=== PATIENT | male | born 1970 | race Caucasian/White ===

== ENCOUNTER 2023-01-30 18:07 | Inpatient (IN) | payer OTHER, MEDICAID ==
[~2023-01-30] VITALS: Ht 175.3 cm; Wt 176.9 kg
[2023-01-30 18:28] VITALS: BP_SYST 121
--- NOTE | 2023-01-30 18:31 | NUR ---
Patient triaged and placed in waiting room. VSS and patient appears in no acute distress at this time. Accompanied by self, awaiting available bed, and MD notified of need for MSE.
[2023-01-30] MEDS ORDERED: HYDROcodone/ACETAMIN 5-325 MG TAB (NORCO/ VICODIN) PO ONE ×2 (21:00→21:15)
[2023-01-30] MEDS ORDERED: ONDANSETRON 4 MG ODT TAB PO ONE (21:15)
--- NOTE | 2023-01-30 21:15 | NUR ---
Patient taken to CT.
[2023-01-30 21:19] LABS: BASOPHILS % (AUTO) 0.7 % (0.0-2.0); EOSINOPHILS # (AUTO) 0.2 K/uL (0.0-0.4); EOSINOPHILS % (AUTO) 2.9 % (0.0-4.0); HEMATOCRIT 45.5 % (36-54); LYMPHOCYTES # (AUTO) 1.4 K/uL (1.0-5.5); LYMPHOCYTES % (AUTO) 21.2 % (20.5-51.5); MEAN CORPUSCULAR HEMOGLOBIN 31 pg (27-31); MEAN CORPUSCULAR HGB CONC 33 % (32-36); MEAN CORPUSCULAR VOLUME 95 fL (79.0-98.0); MONOCYTES # (AUTO) 0.7 K/uL (0.0-1.0); NEUTROPHILS # (AUTO) 4.3 K/uL (1.8-7.7); NEUTROPHILS % (AUTO) 65.2 % (40.0-70.0); PLATELET COUNT (AUTO) 194 K/uL (130-430); RED BLOOD CELL COUNT(AUTO) 4.78 MIL/uL (4.2-6.2); RED CELL DISTRIBUTION WIDTH 15.1 % (9.0-15.0); WHITE BLOOD COUNT (AUTO) 6.5 K/uL (4.8-10.8)
[2023-01-30 21:34] LABS: ALBUMIN 3.4 g/dL (3.4-4.8); CALCIUM 8.8 mg/dL (8.4-11.0); CREATININE 1.21 mg/dL (0.55-1.30); TOTAL BILIRUBIN 0.4 mg/dL (0.0-1.0)
[2023-01-30] MEDS ORDERED: MORPHINE 4 MG INJ. 4 MG/ML VIAL IVP ONE (21:45)
[2023-01-30] MEDS ORDERED: MUPIROCIN 2% TOPICAL OINTMENT 22 GM NS PRN (22:00)
[2023-01-30] MEDS ORDERED: MAGNESIUM SULFATE 50 ML IV PRN (22:00)
[2023-01-30] MEDS ORDERED: DOCUSATE SODIUM 100 MG CAPSULE PO PRN (22:00)
[2023-01-30] MEDS ORDERED: MORPHINE 2 MG/ML INJ. SYRINGE IVP PRN ×2 (22:00)
[2023-01-30] MEDS ORDERED: POTASSIUM CHLORIDE 20 MEQ TAB.PRT.SR PO PRN (22:00)
[2023-01-30] MEDS ORDERED: NACL 0.9% 1,000 ML IV ONE (22:00)
[2023-01-30] MEDS ORDERED: ACETAMINOPHEN 325 MG TABLET PO PRN (22:00)
[2023-01-30] MEDS ORDERED: ONDANSETRON HCL 4 MG/2 ML VIAL IVP PRN (22:00)
--- NOTE | 2023-01-30 23:15 | NUR ---
Admit bed requested Patient will be admitted to care of Dr. PARKS. Admitted to [facility] unit. Diagnosis ABDOMINAL PAIN Inpatient (Yes or No) YES Observation (Yes or No) NO Orientation concerns or request close to nursing station (Yes or No) NO Covid Status NEGATIVE On vent or bipap NO Isolation requirements NONE Needs a sitter NO From Home (Yes or if No enter name of facility) HOME Requires Dialysis (Yes or No) NO Med Rec Completed (Yes of No) YES
--- NOTE | 2023-01-30 23:19 | NUR ---
Dr. Francis at bedside talking to the patient about getting admitted.
--- NOTE | 2023-01-30 23:34 | NUR ---
Patient does not wish to proceed with medical care recommended by Dr. Lagunas. Patient given information related to possible complications, up to and including , which could occur as a result of leaving hospital at this time. Patient verbalizes understanding of risks involved leaving against medical advice. Patient has signed AMA form.
== END 2023-01-30 23:34 | disposition left against medical advice (07) | DRG 392 ==
LOC: SED 18:07 → SMU 21:58
PROVIDERS: ADMIT Family Medicine; ATTEND Family Medicine
DX: R10.9 Unspecified abdominal pain (principal); K42.9 Umbilical hernia without obstruction or gangrene; Z91.018 Allergy to other foods; Z90.49 Acquired absence of other specified parts of digestive tract; Z53.21 Procedure and treatment not carried out due to patient leaving prior to being seen by health care provider
CPT/HCPCS: 36415; 76376; 80053; 82150; 83690; 85025; 96374; 99285; J2270; Q0162

== ENCOUNTER 2024-01-14 21:53 | Emergency (ER) | payer OTHER, MEDICAID ==
[~2024-01-14] VITALS: Ht 175.3 cm; Wt 176.9 kg
[2024-01-14 21:55] VITALS: BP_SYST 140; PULSE 85; RESP 20; TEMP 98.2; O2SAT 97
[2024-01-15 00:38] LABS: BASOPHILS % (AUTO) 0.5 % (0.0-2.0); EOSINOPHILS # (AUTO) 0.2 K/uL (0.0-0.4); EOSINOPHILS % (AUTO) 3.6 % (0.0-4.0); HEMATOCRIT 45.6 % (36-54); HEMOGLOBIN 15.4 g/dL (14.0-18.0); LYMPHOCYTES # (AUTO) 1.6 K/uL (1.0-5.5); LYMPHOCYTES % (AUTO) 24.6 % (20.5-51.5); MEAN CORPUSCULAR HEMOGLOBIN 33 pg (27-31); MEAN CORPUSCULAR HGB CONC 34 % (32-36); MEAN CORPUSCULAR VOLUME 96 fL (79.0-98.0); MONOCYTES # (AUTO) 0.6 K/uL (0.0-1.0); MONOCYTES % (AUTO) 8.6 % (1.7-9.3); NEUTROPHILS # (AUTO) 4.1 K/uL (1.8-7.7); NEUTROPHILS % (AUTO) 62.7 % (40.0-70.0); PLATELET COUNT (AUTO) 177 K/uL (130-430); RED BLOOD CELL COUNT(AUTO) 4.75 MIL/uL (4.2-6.2); RED CELL DISTRIBUTION WIDTH 14.9 % (9.0-15.0); WHITE BLOOD COUNT (AUTO) 6.6 K/uL (4.8-10.8)
[2024-01-15] MEDS: MORPHINE 4 MG INJ. 4 MG/ML VIAL IVP ONE ×2 (00:50→03:23)
[2024-01-15] MEDS: ONDANSETRON HCL 4 MG/2 ML VIAL IVP ONE (00:51)
[2024-01-15 01:32] LABS: ALBUMIN 3.3 g/dL (3.4-4.8); CALCIUM 8.5 mg/dL (8.4-11.0); CREATININE 0.77 mg/dL (0.55-1.30); POTASSIUM 4.4 mmol/L (3.5-5.1); TOTAL BILIRUBIN 0.6 mg/dL (0.0-1.0); TOTAL PROTEIN, SERUM 6.9 g/dL (6.4-8.3)
[2024-01-15 04:00] VITALS: BP_SYST 135; PULSE 75; RESP 16; TEMP 98.5; O2SAT 96
== END 2024-01-15 05:37 | disposition home or self-care (01) ==
LOC: SED 21:53
DX: R10.84 Generalized abdominal pain (principal); M79.605 Pain in left leg; R11.0 Nausea; Z79.899 Other long term (current) drug therapy
CPT/HCPCS: 99285; 80053; 83690; 85025; 36415; 74176; 93970; 96374; 96375; 96376; J2405; J2270

== ENCOUNTER 2024-06-26 19:41 | Emergency (ER) | payer OTHER ==
[~2024-06-26] VITALS: Ht 175.3 cm; Wt 176.9 kg
[~2024-06-26 19:41] MED LIST: IBUP-1971 PO; PRED20TA PO
[2024-06-26 19:51] VITALS: BP_SYST 168; PULSE 81; RESP 20; TEMP 98; O2SAT 97
[2024-06-26] MEDS: HYDROmorphone 1 MG/ML INJ. CARTRIDGE IVP ONE (22:03)
[2024-06-26] MEDS: ONDANSETRON HCL 4 MG/2 ML VIAL IVP ONE (22:24)
[2024-06-26] MEDS ORDERED: HYDROmorphone 1 MG/ML INJ. CARTRIDGE ONE (23:40)
[2024-06-26] MEDS: HYDROmorphone 2 MG/ML VIAL IVP ONE (23:42)
[2024-06-26] MEDS ORDERED: HYDROmorphone 2 MG/ML VIAL ONE (23:56)
[2024-06-27 00:57] VITALS: BP_SYST 159; PULSE 70; RESP 12; TEMP 98.4; O2SAT 94
[2024-06-27] MEDS ORDERED: IBUP-1969 PO (00:58)
== END 2024-06-27 00:57 | disposition home or self-care (01) ==
LOC: SED 19:41
DX: S13.8XXA Sprain of joints and ligaments of other parts of neck, initial encounter (principal); R03.0 Elevated blood-pressure reading, without diagnosis of hypertension; Z98.890 Other specified postprocedural states; Z79.899 Other long term (current) drug therapy; W18.39XA Other fall on same level, initial encounter; Y93.89 Activity, other specified; Y92.89 Other specified places as the place of occurrence of the external cause; Y99.8 Other external cause status
CPT/HCPCS: 99284; 96374; 96375; 96376; J2405; J1170 ×2

== ENCOUNTER 2024-08-25 23:25 | Emergency (ER) | payer OTHER, MEDICAID ==
[~2024-08-25] VITALS: Ht 175.3 cm; Wt 176.9 kg
[~2024-08-25 23:25] MED LIST changes: +ALBUTEROL; +DEXL60CA18 PO; +ENOX150D SQ; +FAMO20TA8 PO; +FLUT16SP16 NS; +GABA300T28; +GABAPENTIN; -IBUP-1971 PO; -PRED20TA PO; +PRED50TA PO; +SOLI10TA7 PO; +TAMS0.4C96 PO; +TEST200V32 IM
[2024-08-25 23:41] VITALS: BP_SYST 148; PULSE 76; RESP 20; TEMP 98; O2SAT 95
[2024-08-25] MEDS: MORPHINE 4 MG INJ. 4 MG/ML VIAL IM ONE (23:57)
[2024-08-25] MEDS: ONDANSETRON 4 MG ODT TAB PO ONE (23:58)
[2024-08-26 00:01] VITALS: BP_SYST 148; PULSE 76; RESP 20; TEMP 98; O2SAT 95
== END 2024-08-26 00:01 | disposition home or self-care (01) ==
LOC: SED 23:25
DX: S13.8XXA Sprain of joints and ligaments of other parts of neck, initial encounter (principal); B34.9 Viral infection, unspecified; R53.1 Weakness; E66.01 Morbid (severe) obesity due to excess calories; Z68.43 Body mass index [BMI] 50.0-59.9, adult; Z79.52 Long term (current) use of systemic steroids; Z79.899 Other long term (current) drug therapy; X58.XXXA Exposure to other specified factors, initial encounter; Y93.89 Activity, other specified; Y92.89 Other specified places as the place of occurrence of the external cause; Y99.8 Other external cause status
CPT/HCPCS: 99283; 96372; Q0162; J2270

== ENCOUNTER 2024-09-14 22:32 | Emergency (ER) | payer OTHER, MEDICAID ==
[~2024-09-14] VITALS: Ht 175.3 cm; Wt 176.9 kg
[2024-09-14 23:05] VITALS: BP_SYST 129; PULSE 81; RESP 20; TEMP 98; O2SAT 95
[2024-09-15] MEDS: MORPHINE 4 MG INJ. 4 MG/ML VIAL IVP ONE ×2 (00:19→02:19)
[2024-09-15 02:33] VITALS: BP_SYST 127; PULSE 79; RESP 20; TEMP 98; O2SAT 95
== END 2024-09-15 02:33 | disposition home or self-care (01) ==
LOC: SED 22:32
DX: M79.661 Pain in right lower leg (principal); Z79.52 Long term (current) use of systemic steroids; Z86.718 Personal history of other venous thrombosis and embolism; Z79.899 Other long term (current) drug therapy
CPT/HCPCS: 99285; 93971; 96374; 96376; J2270